=== PATIENT | female | born 1965 | race Caucasian/White ===

== ENCOUNTER 2017-02-19 19:38 | Emergency (ER) | payer SELFPAY ==
[~2017-02-19] VITALS: Ht 160 cm; Wt 70.0 kg
[~2017-02-19 19:38] MED LIST: CIPR500T4 PO; GABA300C3 PO; GLUCTAB PO; LANTUS2P SC; LANTUSP SQ; LORA2TAB PO; LORTA5 PO; LYRI200C PO; NOVOINJ5 SQ; Z.0.HUMULIN REGULARU SQ
[2017-02-19 19:45] VITALS: BP 142/90; PULSE 87; RESP 20; TEMP 97.8; O2SAT 99
[2017-02-19 20:04] VITALS: PULSE 90; RESP 18; O2SAT 98
[2017-02-19] MEDS ORDERED: METF1000 PO (20:04)
[2017-02-19] MEDS ORDERED: LORA2TAB7 PO (20:04)
[2017-02-19] MEDS ORDERED: TRAM50TA PO (20:04)
[2017-02-19] MEDS ORDERED: NRDRIP (20:04)
[2017-02-19] MEDS ORDERED: LANTUS2P SQ (20:04)
[2017-02-19] MEDS ORDERED: GABA300C5 PO (20:04)
[2017-02-19] MEDS ORDERED: LYRI200C PO (20:04)
--- NOTE | 2017-02-19 20:08 | PD ---
HPI Chief Complaint: Respiratory Symptoms Time Seen by Provider: 19:56 Travel History International Travel<30 days: No Contact w/Intl Traveler<30days: No Traveled to known affect area: No History of Present Illness HPI This 51-year-old female says she's been short of breath for a few months. She has dyspnea with minimal exertion. She has not had fever or chills. She has a history of asthma and uses an nebulizer. She is almost out of her medication. She has no history of heart disease. She does have a history of diabetes for 19 years. She does get some swelling of her ankles. She has occasional left- sided chest pain. She has not had any today. She has no history of blood clots. She does have history of contrast media allergy PFS Past Medical History Arthritis: Yes Asthma: Yes Anxiety: Yes Depression: Yes Cardiovascular Problems: No High Cholesterol: No Congestive Heart Failure: No COPD: No Cerebrovascular Accident: No Diabetes: Yes Diminished Hearing: No Endocrine: Yes Gastrointestinal Disorders: Yes GERD: Yes Genitourinary: No Headaches: Yes Hiatal Hernia: No Hypertension: No Immune Disorder: No Implanted Vascular Access Dvce: No Musculoskeletal: Yes Neurologic: Yes (NEUROPATHY) Psychiatric: Yes Reproductive: No Respiratory: Yes (Asthma) Immunizations Current: Yes Migraines: No Seizures: No Sleep Apnea: No Ulcer: No PNEUMOCCOCAL Vaccine (Year): 2 ?: Unknown Menopausal: Yes : 4 Para: 5 Miscarriage: 0 Tubal Ligation: Yes Past Surgical History Abdominal Surgery: Yes (UMBILICAL HERNIA REPAIR AND LAP [place]) Cardiac Surgery: No Section: Yes (X2) Cholecystectomy: Yes Coronary Artery Bypass Graft: No Ear Surgery: No Endocrine Surgery: No Eye Surgery: No Genitourinary Surgery: No Gynecologic Surgery: Yes (C SECTION X2) Neurologic Surgery: No Oral Surgery: No Thoracic Surgery: No Other Surgery: Yes Social History Alcohol Use: Yes (OCCASIONAL- WINE) Tobacco Use: No Substance Use: No Allergies-Medications (Allergen,Severity, Reaction): Coded Allergies: Azithromycin (Verified Allergy, Intermediate, Rash, 02/19/17) BLISTERS AND ULCERS IN MOUTH AND LIPS Doxycycline (Verified Allergy, Intermediate, EPIGASTRIC PAIN, 02/19/17) Contrast Media (Verified Allergy, Mild, RASH, 02/19/17) Iodine (Verified Allergy, Mild, ITCHY, 02/19/17) Aspirin (Verified Adverse Reaction, Intermediate, EPIGASTRIC PAIN, 02/19/17) Reported Meds & Prescriptions Reported Meds & Active Scripts Active Reported Lisinopril 5 Mg Tab 5 Mg PO DAILY Tramadol (Tramadol HCl) 50 Mg Tab 50 Mg PO Q8H PRN Lyrica (Pregabalin) 200 Mg Cap 200 Mg PO BID Metformin (Metformin HCl) 1,000 Mg Tab 1,000 Mg PO BIDPC With meals Lorazepam 2 Mg Tab 2 Mg PO HS PRN Novolin R Inj (Insulin Human Regular) 100 Unit/Ml Inj Lantus Inj (Insulin Glargine) 1,000 Unit/10 Ml Vial 10 Units SQ HS Gabapentin 300 Mg Cap 300 Mg PO BID Review of Systems General / Constitutional: No: Fever, Chills Eyes: No: Diploplia HENT: No: Headaches Cardiovascular: No: Chest Pain or Discomfort, Palpitations Respiratory: Positive: Shortness of Breath Gastrointestinal: No: Nausea, Vomiting Genitourinary: No: Urgency, Frequency Physical Exam Narrative GENERAL: Well-developed female. Her pulse is 80 and O2 sat is 98% SKIN: Focused skin assessment warm/dry. HEAD: Atraumatic. Normocephalic. EYES: Pupils equal and round. No scleral icterus. No injection or drainage. ENT: No nasal bleeding or discharge. Mucous membranes pink and moist. NECK: Trachea midline. No JVD. CARDIOVASCULAR: Regular rate and rhythm. No murmur appreciated. RESPIRATORY: No accessory muscle use. Clear to auscultation. Breath sounds equal bilaterally. GASTROINTESTINAL: Abdomen soft, non-tender, nondistended. Hepatic and splenic margins not palpable. MUSCULOSKELETAL: No obvious deformities. No clubbing. No cyanosis. No edema. On sign negative bilaterally NEUROLOGICAL: Awake and alert. No obvious cranial nerve deficits. Motor grossly within normal limits. Normal speech. PSYCHIATRIC: Appropriate mood and affect; insight and judgment normal. Data Data Last Documented VS Vital Signs Date Time Temp Pulse Resp B/P Pulse Ox O2 Delivery O2 Flow Rate FiO2 02/19/17 21:06 87 18 141/88 98 Room Air 02/19/17 19:45 97.8 Orders Complete Blood Count With Diff (02/19/17 20:04) Comprehensive Metabolic Panel (02/19/17 20:04) B-Type Natriuretic Peptide (02/19/17 20:04) Magnesium (Mg) (02/19/17 20:04) Troponin I (02/19/17 20:04) Urinalysis - C+S If Indicated (02/19/17 20:04) Iv Access Insert/Monitor (02/19/17 20:04) Electrocardiogram (02/19/17 20:04) Ecg Monitoring (02/19/17 20:04) Oximetry (02/19/17 20:04) Chest, Single Ap (02/19/17 20:04) Sodium Chloride 0.9% Flush (Ns Flush) (02/19/17 20:15) D-Dimer (02/19/17 20:47) Insulin Human Regular Inj (Novolin R Inj (02/19/17 21:00) Labs Laboratory Tests Test 02/19/17 20:20 White Blood Count 6.6 TH/MM3 Red Blood Count 4.32 MIL/MM3 Hemoglobin 13.1 GM/DL Hematocrit 38.6 % Mean Corpuscular Volume 89.5 FL Mean Corpuscular Hemoglobin 30.3 PG Mean Corpuscular Hemoglobin 33.8 % Concent Red Cell Distribution Width 11.9 % Platelet Count 227 TH/MM3 Mean Platelet Volume 9.4 FL Neutrophils (%) (Auto) % Lymphocytes (%) (Auto) % Monocytes (%) (Auto) % Eosinophils (%) (Auto) % Basophils (%) (Auto) % Neutrophils # (Auto) TH/MM3 Lymphocytes # (Auto) TH/MM3 Monocytes # (Auto) TH/MM3 Eosinophils # (Auto) TH/MM3 Basophils # (Auto) TH/MM3 CBC Comment AUTO DIFF Differential Total Cells 100 Counted Neutrophils % (Manual) 51 % Lymphocytes % 41 % Eosinophils % 8 % Neutrophils # (Manual) 3.4 TH/MM3 Differential Comment FINAL DIFF MANUAL Platelet Estimate NORMAL Platelet Morphology Comment CLUMPED Red Cell Morphology Comment NORMAL D-Dimer Quantitative (PE/DVT) 0.70 MG/L FEU Urine Color YELLOW Urine Turbidity CLEAR Urine pH 6.0 Urine Specific [place] 1.027 Urine Protein NEG mg/dL Urine Glucose (UA) 1000 OR GREATER mg/dL Urine Ketones NEG mg/dL Urine Occult Blood NEG Urine Nitrite NEG Urine Bilirubin NEG Urine Leukocyte Esterase NEG Urine RBC 0-3 /hpf Urine WBC 3-5 /hpf Urine Squamous Epithelial 6-8 /hpf Cells Urine Bacteria OCC /hpf Urine Mucus OCC /lpf Microscopic Urinalysis Comment CULT NOT INDICATED Sodium Level 137 MEQ/L Potassium Level 3.9 MEQ/L Chloride Level 99 MEQ/L Carbon Dioxide Level 29.7 MEQ/L Anion Gap 8 MEQ/L Blood Urea Nitrogen 17 MG/DL Creatinine 0.99 MG/DL Estimat Glomerular Filtration 59 ML/MIN Rate Random Glucose 308 MG/DL Calcium Level 8.7 MG/DL Magnesium Level 1.9 MG/DL Total Bilirubin 0.3 MG/DL Aspartate Amino Transf 13 U/L (AST/SGOT) Alanine Aminotransferase 32 U/L (ALT/SGPT) Alkaline Phosphatase 133 U/L Troponin I LESS THAN 0.02 NG/ML B-Type Natriuretic Peptide 39 PG/ML Total Protein 8.2 GM/DL Albumin 4.1 GM/DL [facility] Medical Decision Making Medical Screen Exam Complete: Yes Emergency Medical Condition: Yes Medical Record Reviewed: Yes Differential Diagnosis Differential includes CHF, PE, asthma Narrative Course CMP is normal. Chest x-ray is read as negative. I had ordered a d-dimer and it came back slightly elevated at 0.7. Patient does have a contrast allergy. Her oxygen saturation is 98% and her heart rate is 80. I'm not can order a CT as I think the chance of a PE is quite low. I will prescribe albuterol. I suspect the dyspnea secondary to asthma no she is not wheezing at this time. Marty Nye MD Feb 19, 2017 20:07
[2017-02-19] MEDS ORDERED: SODIUM CHLORIDE 0.9% FLUSH 10 ML FLUSH IVF PRN (20:15)
[2017-02-19 20:44] LABS: BLOOD, URINE NEG (NEG); HEMATOCRIT 38.6 % (35.0-46.0); KETONE, URINE NEG (NEG); MEAN CELL VOLUME 89.5 FL (80.0-100.0); MEAN CORPUSCULAR HEMOGLOBIN 30.3 PG (27.0-34.0); MEAN CORPUSCULAR HGB CONC 33.8 % (32.0-36.0); NITRITE,URINE NEG (NEG); PLATELET COUNT 227 TH/MM3 (150-450); RED BLOOD COUNT 4.32 MIL/MM3 (4.00-5.30); RED CELL DISTRIBUTION WIDTH 11.9 % (11.6-17.2); WHITE BLOOD COUNT 6.6 TH/MM3 (4.0-11.0)
--- NOTE | 2017-02-19 20:44 | RADHPO ---
EXAM DATE/TIME: 02/19/2017 20:35 [facility] COMPARISON: CHEST SINGLE AP, April 28, 2015, 2:06. INDICATIONS : Short of breath. MEDICAL HISTORY : Asthma. SURGICAL HISTORY : None. ENCOUNTER: Initial ACUITY: 2 months PAIN SCORE: 0/10 LOCATION: Bilateral chest FINDINGS: A single view of the chest demonstrates the lungs to be symmetrically aerated without evidence of mas s, infiltrate or effusion. The cardiomediastinal contours are unremarkable. Osseous structures are intact. CONCLUSION: No acute disease. Kedar Hodges MD on February 19, 2017 at 20:42 Board Certified Radiologist. This report was verified electronically.
[2017-02-19 20:48] LABS: GLUCOSE,URINE 1000 OR GREATER mg/dL (NEG)
[2017-02-19 20:50] LABS: HEMO FLAGS AUTO DIFF
[2017-02-19 20:53] LABS: CHLORIDE 99 MEQ/L (98-107); POTASSIUM 3.9 MEQ/L (3.5-5.1); SODIUM (NA) 137 MEQ/L (136-145)
[2017-02-19 20:56] LABS: ANION GAP 8 MEQ/L (5-15); BICARBONATE 29.7 MEQ/L (21.0-32.0); BLOOD UREA NITROGEN 17 MG/DL (7-18); MAGNESIUM 1.9 MG/DL (1.5-2.5)
[2017-02-19] MEDS ORDERED: LISI-519 PO (20:57)
[2017-02-19 20:59] LABS: ALT (GPT) 32 U/L (10-53)
[2017-02-19 21:00] LABS: AST (GOT) 13 U/L (15-37); GLOMERULAR FILTRATION RATE 59 ML/MIN (>89)
[2017-02-19] MEDS ORDERED: INSULIN HUMAN REGULAR 1,000 UNITS/10 ML VIAL SQ ONE (21:00)
[2017-02-19 21:01] LABS: TOTAL BILIRUBIN ADULT 0.3 MG/DL (0.2-1.0)
[2017-02-19 21:02] LABS: ALKALINE PHOSPHATASE 133 U/L (45-117)
[2017-02-19 21:06] VITALS: BP 141/88; PULSE 87; RESP 18; O2SAT 98
[2017-02-19 21:07] LABS: URINE COLOR YELLOW (YELLW/STRAW)
[2017-02-19 21:08] LABS: BACTERIA, URINE OCC /hpf
[2017-02-19 21:10] LABS: COMMENT (UR) CULT NOT INDICATED; CULTURE IF INDICATED CULT NOT INDICATED; MUCUS URINE OCC /lpf (OCC); RBC, URINE 0-3 /hpf (0-3)
[2017-02-19 21:21] LABS: EOSINOPHILS 8 % (0-4); NEUTROPHIL # MANUAL DIFF 3.4 TH/MM3 (1.8-7.7); POLYS (SEG NEUTROPHILS) 51 % (16-70); WBC DIFF SAMPLE 100
[2017-02-19 21:22] LABS: PLATELET ESTIMATE SMEAR NORMAL (NORMAL); PLATELET MORPHOLOGY CLUMPED (NORMAL); SCAN/DIFF FINAL DIFF MANUAL
[2017-02-19] MEDS ORDERED: ALBU0.08 NEB (21:34)
[2017-02-19] MEDS ORDERED: VENTAER INH (21:34)
[2017-02-19 22:13] VITALS: BP 144/78
--- NOTE | 2017-02-20 18:21 | EKG ---
Date Performed: 02/19/2017 Time Performed: 20:09:16 PTAGE: 51 years EKG: Sinus rhythm Normal ECG PREVIOUS TRACING : 04/28/2015 01.49 Compared to prior tracing no significant change DOCTOR: Juanito Pineda Interpretating Date/Time 02/20/2017 18:19:53
== END 2017-02-19 22:15 | disposition home or self-care (01) ==
LOC: PHED 19:38
DX: R06.00 Dyspnea, unspecified (principal); J45.909 Unspecified asthma, uncomplicated; E11.9 Type 2 diabetes mellitus without complications; K21.9 Gastro-esophageal reflux disease without esophagitis; R60.0 Localized edema
CPT/HCPCS: 71010; 80053; 81001; 83735; 83880; 84484; 85007; 85027; 85379; 93005; 96372; 99285; J1815

== ENCOUNTER 2017-06-10 19:22 | Emergency (ER) | payer SELFPAY ==
[~2017-06-10] VITALS: Ht 160 cm; Wt 70.4 kg
[~2017-06-10 19:22] MED LIST changes: +ALBU0.08 NEB; -CIPR500T4 PO; -GABA300C3 PO; +GABA300C5 PO; -GLUCTAB PO; -LANTUS2P SC; +LANTUS2P SQ; -LANTUSP SQ; +LISI-519 PO; -LORA2TAB PO; +LORA2TAB7 PO; -LORTA5 PO; +METF1000 PO; -NOVOINJ5 SQ; +NRDRIP; +TRAM50TA PO; +VENTAER INH; -Z.0.HUMULIN REGULARU SQ
[2017-06-10 19:27] VITALS: BP 112/58; PULSE 91; RESP 16; TEMP 98.3; O2SAT 96
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
--- NOTE | 2017-06-10 20:13 | RADRPT ---
EXAM DATE/TIME: 06/10/2017 19:56 [facility] COMPARISON: No previous studies available for comparison. INDICATIONS : Right foot pain. MEDICAL HISTORY : Diabetes mellitus type II. SURGICAL HISTORY : Right great toe amputation. ENCOUNTER: Initial ACUITY: 1 day PAIN SCORE: 8/10 LOCATION: Right foot, 4th and 5th toes and metatarsals. FINDINGS: 3 views of the right foot demonstrate amputation of the right first digit and the distal aspect of th e first metatarsal. 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 The Lisfranc joint is not well-v isualized but demonstrates no definite abnormality. There is hypertrophic bone at the first and secon d tarsometatarsal joints. No acute soft tissue abnormality or radiopaque foreign body is identified. CONCLUSION: No acute right foot abnormality is identified. Patient is post right first digit amputation and there are chronic degenerative changes at the first and second tarsometatarsal joints. Jr Vigil MD on June 10, 2017 at 20:10 Board Certified Radiologist. This report was verified electronically.
== END 2017-06-10 20:31 | disposition home or self-care (01) ==
LOC: PHEFT 19:22
DX: S90.31XA Contusion of right foot, initial encounter (principal); J45.909 Unspecified asthma, uncomplicated; E11.9 Type 2 diabetes mellitus without complications; K21.9 Gastro-esophageal reflux disease without esophagitis; W31.89XA Contact with other specified machinery, initial encounter; Y92.009 Unspecified place in unspecified non-institutional (private) residence as the place of occurrence of the external cause; Y99.8 Other external cause status
CPT/HCPCS: 73630; 99283

== ENCOUNTER 2018-02-20 18:43 | Emergency (ER) | payer SELFPAY ==
[~2018-02-20] VITALS: Ht 160 cm; Wt 68.7 kg
[~2018-02-20 18:43] MED LIST changes: -LISI-519 PO; -LORA2TAB7 PO
[2018-02-20 18:48] VITALS: BP 132/60; PULSE 86; RESP 16; TEMP 97.9; O2SAT 100
[2018-02-20] MEDS ORDERED: BACT800T5 PO (19:07)
--- NOTE | 2018-02-20 19:15 | PD ---
HPI Chief Complaint: Skin Problem Time Seen by Provider: 18:53 Travel History International Travel<30 days: No Contact w/Intl Traveler<30days: No Traveled to known affect area: No History of Present Illness HPI 52 year-old female presents to the emergency room for evaluation of an abscess to her right groin area for the past 6 days. Patient states it started after she shaved the area. It started off as a small pimple and has continuously grown every day. She has been squeezing it without relief. She has also taken 4 doses of Augmentin without improvement. She reports moderate pain, worse when her panties rub the area. No fevers. She has history of diabetes. PFSH Past Medical History Arthritis: Yes Asthma: Yes Anxiety: Yes Depression: Yes Cardiovascular Problems: No High Cholesterol: No Congestive Heart Failure: No COPD: No Cerebrovascular Accident: No Diabetes: Yes (type 2) Patient Takes Glucophage: Yes Diminished Hearing: No Endocrine: Yes Gastrointestinal Disorders: Yes GERD: Yes Genitourinary: No Headaches: Yes Hiatal Hernia: No Hypertension: No Immune Disorder: No Implanted Vascular Access Dvce: No Musculoskeletal: Yes Neurologic: Yes (NEUROPATHY) Psychiatric: Yes Reproductive: No Respiratory: Yes (asthma) Immunizations Current: Yes Migraines: No Seizures: No Sleep Apnea: No Ulcer: No Tetanus Vaccination: > 5 Years Influenza Vaccination: No PNEUMOCCOCAL Vaccine (Year): 2 ?: Not Menopausal: Yes : 4 Para: 5 Miscarriage: 0 Tubal Ligation: Yes Past Surgical History Abdominal Surgery: Yes (UMBILICAL HERNIA REPAIR AND LAP [place]) Cardiac Surgery: No Section: Yes (X2) Cholecystectomy: Yes Coronary Artery Bypass Graft: No Ear Surgery: No Endocrine Surgery: No Eye Surgery: No Genitourinary Surgery: No Gynecologic Surgery: Yes (C SECTION X2) Neurologic Surgery: No Oral Surgery: No Thoracic Surgery: No Other Surgery: Yes Family History Family Myocardial Infarction: Yes (FATHER) Social History Alcohol Use: Yes (OCCASIONAL) Tobacco Use: No Substance Use: No Allergies-Medications (Allergen,Severity, Reaction): Coded Allergies: azithromycin (Unverified Allergy, Intermediate, Rash, 02/20/18) BLISTERS AND ULCERS IN MOUTH AND LIPS doxycycline (Unverified Allergy, Intermediate, EPIGASTRIC PAIN, 02/20/18) diatrizoate meglumine (Unverified Allergy, Mild, RASH, 02/20/18) gadobenic acid (Unverified Allergy, Mild, RASH, 02/20/18) gadodiamide (Unverified Allergy, Mild, RASH, 02/20/18) gadoteridol (Unverified Allergy, Mild, RASH, 02/20/18) iodine (Unverified Allergy, Mild, ITCHY, 02/20/18) iodixanol (Unverified Allergy, Mild, RASH, 02/20/18) iohexol (Unverified Allergy, Mild, RASH, 02/20/18) potassium iodide (Unverified Allergy, Mild, ITCHY, 02/20/18) povidone-iodine (Unverified Allergy, Mild, ITCHY, 02/20/18) sodium iodide (Unverified Allergy, Mild, ITCHY, 02/20/18) sodium iodide (Unverified Allergy, Mild, ITCHY, 02/20/18) aspirin (Unverified Adverse Reaction, Intermediate, EPIGASTRIC PAIN, ) Reported Meds & Prescriptions Reported Meds & Active Scripts Active Bactrim DS (Sulfamethoxazole-Trimethoprim) 800-160 Mg Tab 1 Tab PO BID Albuterol Neb (Albuterol Sulfate) 2.5 Mg/3 Ml Neb 2.5 Mg NEB Q4HR NEB PRN Ventolin Hfa 18 GM Inh (Albuterol Sulfate) 90 Mcg/Act Aer 2 Puff INH Q4H PRN Reported Tramadol (Tramadol HCl) 50 Mg Tab 50 Mg PO Q8H PRN Lyrica (Pregabalin) 200 Mg Cap 200 Mg PO BID Metformin (Metformin HCl) 1,000 Mg Tab 1,000 Mg PO BIDPC With meals Novolin R Inj (Insulin Human Regular) 100 Unit/Ml Inj Lantus Inj (Insulin Glargine) 1,000 Unit/10 Ml Vial 10 Units SQ HS Gabapentin 300 Mg Cap 300 Mg PO BID Review of Systems Except as stated in HPI: all other systems reviewed are Neg Physical Exam Narrative GENERAL: Well-nourished, well-developed female no acute distress. Afebrile. Ambulatory. SKIN: Focused skin assessment warm/dry. There is an indurated area in the right groin area which measures about 3 cm in diameter. It is fluctuant but there is no pointing or drainage. There is a zone of inflammation around it but no lymphangitis. HEAD: Normocephalic. EYES: No scleral icterus. No injection or drainage. NECK: Supple, trachea midline. No JVD or lymphadenopathy. CARDIOVASCULAR: Regular rate and rhythm without murmurs, gallops, or rubs. RESPIRATORY: Breath sounds equal bilaterally. No accessory muscle use. MUSCULOSKELETAL: No cyanosis, or edema. Data Data Last Documented VS Vital Signs Date Time Temp Pulse Resp B/P (MAP) Pulse Ox O2 Delivery O2 Flow Rate FiO2 02/20/18 18:48 97.9 86 16 132/60 (84) 100 MDM Medical Decision Making Medical Screen Exam Complete: Yes Emergency Medical Condition: Yes Medical Record Reviewed: Yes Differential Diagnosis Abscess, cellulitis, lymphangitis, folliculitis Narrative Course 52-year-old female presents to the emergency room for evaluation of right groin abscess for the past 6 days. Physical exam reveals a 3 cm area of fluctuance surrounded by inflammation. No lymphangitis. It is extremely tender. Abscess was drained, see procedure note for details. Patient discharged with Bactrim and told to follow-up with primary care physician or return for worsening symptoms. She understands and agrees to plan. Procedures Procedure Narrative INCISION AND DRAINAGE OF ABSCESS: The area was prepped and was sterilely draped. A subcutaneous wheal of 1 % Xylocaine with a total number 3 mL was used to anesthetize the area properly. A number 11 scalpel was used to make a 1 cm incision across the area of the abscess. The abscess was drained, complex loculations were broken down, and irrigated with normal saline. Sterile dressing applied. Diagnosis Primary Impression: Abscess of right groin Referrals: Primary Care Physician Additional Instructions: Rest and drink plenty of fluids. Take Bactrim as directed, until gone. Follow up with a primary care physician. Return to emergency room for worsening symptoms, as discussed. Med/Other Pt SpecificInfo: Prescription(s) given Scripts Sulfamethoxazole-Trimethoprim (Bactrim DS) 800-160 Mg Tab 1 TAB PO BID for Infection, #20 TAB 0 Refills Prov: Cleo Daily DO 02/20/18 Disposition: 01 DISCHARGE HOME Condition: Stable Melanie Abel Feb 20, 2018 19:15
== END 2018-02-20 19:23 | disposition home or self-care (01) ==
LOC: PHEFT 18:43
DX: L02.214 Cutaneous abscess of groin (principal); E11.9 Type 2 diabetes mellitus without complications; F32.9 Major depressive disorder, single episode, unspecified; F41.9 Anxiety disorder, unspecified; J45.909 Unspecified asthma, uncomplicated; K21.9 Gastro-esophageal reflux disease without esophagitis
CPT/HCPCS: 10060